=== PATIENT | female | born 1980 | race Caucasian/White ===

== ENCOUNTER 2023-05-23 11:42 | Inpatient (IN) | payer OTHER, SELFPAY ==
[2023-05-20 09:30] VITALS: BMI 24.1
[2023-05-23 12:12] VITALS: BP 124/74; PULSE 72; RESP 17; TEMP 36.6; O2SAT 100; BMI 24.1
[2023-05-23] MEDS: LACTATED RINGERS 1,000 ML 100 ML IV (12:29)
[2023-05-23] MEDS: ACETAMINOPHEN 325 MG TABLET 975 MG PO (12:42)
--- NOTE | 2023-05-23 13:34 | PM.PREOP ---
Pre-operative Note Interval Note History & Physical reviewed/Exam performed by Physician: Yes Changes to H&P: No
[2023-05-23] MEDS: CEFAZOLIN 2 GM/100 ML PREMIX 100 ML IV (14:15)
--- NOTE | 2023-05-23 14:28 | SUR.OPER ---
Supine on padded OR bed, head on gel donut, arms padded and papoosed at sides, legs uncrossed, safety belt at thigh, pillows under knees
--- NOTE | 2023-05-23 16:50 | DI.RAD.S_ITS ---
PROCEDURE: XR CERVICAL SPINE 2V OR 3V INDICATIONS: C4-5, C6-7 TECHNIQUE: AP and lateral C-arm operative view(s) of the cervical spine were acquired. COMPARISON: None. FINDINGS: Operative C-arm imaging demonstrates that the patient is intubated. There is cervical hardware from ACDF from C5 through C7 and interbody spacers at C5-C6 and C6-C7. IMPRESSION: Operative imaging demonstrating cervical fusion hardware with no radiographic evidence of complications. Dictated by: David Gutierres M.D. on 05/23/2023 at 17:01 Approved by: David Gutierres M.D. on 05/23/2023 at 17:02
[2023-05-23 16:58] VITALS: BP 151/95; PULSE 113; RESP 12; TEMP 36.3; O2SAT 98
--- NOTE | 2023-05-23 16:58 | PM.OP.1 ---
Operative Date/Time/Diagnoses Date of procedure: 05/23/23 Time of procedure: 14:00 Pre-op diagnosis: 1. C5-6, C6-7 spinal stenosis 2. 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 C5-6 C6-7 anterior cervical diskectomy and fusion 2. C5-6 C6-7 anterior interbody cage placement 3. C5-6 C6-7 anterior instrumentation with plate and screw placement in C5-C6 and C7 vertebrae 4. Utilization of microsurgical technique and operating microscope Same procedure as scheduled: Yes Indications: Patient has been having chronic neck pain and worsening cervical radiculopathy and myelopathy. Patient failed multiple conservative management with worsening pain weakness and numbness in her upper extremity. Patient has been having difficulty performing activity of daily living. After discussing risks benefits of treatment options, patient elected proceed with surgery. Surgeon: Ana Harvey Cable Installer Repairer Helper: Josefina Salcido Click Yes if Unassisted: No Anesthesia Type: General Operative Notes Closure Type: primary Specimen(s): none sent Prosthetic devices, grafts, tissues, transplants, or devices: GLobus Extend Plate, Hedron C cages Estimated Blood Loss (mL): 5 Procedure in detail: Patient was seen in the preoperative area. Risks and benefits of the surgery was discussed with the patient. Operative consent was obtained and placed in the chart. Patient was then taken to the operative room. Prophylactic antibiotic was given less than 0.5 hr prior to skin incision. General anesthesia was administered. Patient was placed into a supine position on her radiolucent table. Bilateral shoulders were taped down to allow proper C-arm imaging. Anterior cervical area was prepped and draped in a sterile fashion. Time-out was performed at this time. Using lateral C-arm imaging, the level between C5 and C7 was identified and marked on patient's neck. A oblique incision from midline towards medial border of sternocleidomastoid muscle was made. The platysma muscle was incised in line with skin incision. Metzenbaum scissor was used to develop the plane between the medial border of sternocleidomastoid and the strap muscles medially. The carotid sheath and its contents were identified and protected behind the hand-held retractor during the entire case. The plane between the carotid sheath and strap muscles was developed with Metzenbaum scissors. Dissection was made down to the level of the anterior cervical fascia. Longus colli muscle was incised on the anterior aspect of vertebral bodies bilaterally from C5-C7. Spinal needle was placed into the C5-6 disc space and confirmed with lateral C-arm imaging. Using microsurgical technique and operative microscope, anterior cervical diskectomy was performed at C5-6 and C6-7 level. This was done by removing the disc material, removing the anterior and posterior osteophytes posterior longitudinal ligaments along with performing bilateral foraminotomies at both levels. Patient was found to have severe central and foraminal stenosis at both levels. Patient's stenosis was fully decompressed after decompression was completed. After the diskectomy was completed, 2 anterior interbody cages were obtained. The cages were packed with DBM bone grafting material. One cage each along with the bone grafting material was then packed into the interbody spaces from C5-C7 with one cage into each interbody level. After the cages were placed, the anterior cervical plate was stabilized to the C5-C7 vertebrae using 2 screws at each each level. Total 6 screws were placed. After confirming placement of the hardware with AP and lateral C-arm imaging, the screws were locked into the plate using the locking mechanism and torque limiting screwdriver. After the hardware was placed and confirmed with AP and lateral C-arm imaging, the wound was irrigated with sterile normal saline. The platysma muscle and the subcutaneous tissue was closed with 2-0 Vicryl. The skin was closed with 4-0 Monocryl and Steri-Strips. Patient tolerated the procedure well. Patient was transferred recovery room in stable condition. There were no complications. The Operation could not have been safely performed without compromising the technical result or length of the procedure, without the assistance of a skilled neurosurgical nurse practitioner. The neurosurgical nurse practitioner was medically necessary for proper positioning, retraction and manipulation of instruments, proper exposure, surgical preparation, and manipulation of tissue. Complications: none Post-operative Condition: stable Disposition: PACU Plan for aftercare: Discharge to home
[2023-05-23 17:09] VITALS: BP 161/90; PULSE 102; RESP 17; O2SAT 99
[2023-05-23 17:16] VITALS: BP 152/85; PULSE 86; RESP 14; TEMP 36.4; O2SAT 98
[2023-05-23 17:30] VITALS: BP 149/84; PULSE 81; RESP 16; TEMP 36.4; O2SAT 98
== END 2023-05-23 17:42 | disposition home or self-care (01) | DRG 473 ==
PROVIDERS: Admitting Provider Orthopaedic Surgery Orthopaedic Surgery of the Spine; PCP Student in an Organized Health Care Education/Training Program; Referring Provider Student in an Organized Health Care Education/Training Program; Visit Provider Orthopaedic Surgery Orthopaedic Surgery of the Spine
PROC: 0RG20A0 Fusion of 2 or more Cervical Vertebral Joints with Interbody Fusion Device, Anterior Approach, Anterior Column, Open Approach (ICD-10-PCS; principal; 2023-05-23 13:45)
DX: M47.12 Other spondylosis with myelopathy, cervical region (principal); M48.02 Spinal stenosis, cervical region
CPT/HCPCS: 72040; 76000; 81025; C1713; J0330; J0690; J1100; J2405; J3010